=== PATIENT | female | born 1990 | race Caucasian/White ===

== ENCOUNTER 2016-10-21 11:21 | Emergency (ER) ==
[2016-10-21 11:25] VITALS: BP 127/79; TEMP 98.8; BMI 26.6
[2016-10-21 11:48] LABS: BILIRUBIN,URINE Negative (NEGATIVE); KETONES,URINE Trace (NEGATIVE); LEUKOCYTE ESTERASE ,URINE 1+ (NEGATIVE); NITRITE,URINE Negative (NEGATIVE); PROTEIN,URINE Negative (NEGATIVE); URINE, BLOOD 2+ (NEGATIVE)
[2016-10-21 11:49] LABS: ADD URINE MICROSCOPIC YES
[2016-10-21 11:50] LABS: URINE PREGNANCY INTERNAL QC INTERNAL QC VALID
[2016-10-21 11:53] LABS: BACTERIA,URINE 1+ (NOT PRESENT)
--- NOTE | 2016-10-21 12:35 | DI ---
Exam: Lumbar spine complete with obliques. HISTORY: Pain. Findings: Anterior, lateral, coned-down and bilateral oblique images of the lumbar spine are submit ronaldo. These demonstrate five [id number], lumbarized vertebrae with no compression fracture or l isthesis. There is no osseous erosion or radiodense foreign body. The facet joints appear grossly aligned and intact. There is a updhotka-ed-wtaie amount of stool throughout the nondilated colon. Impressions: No compression fracture or listhesis in the lumbar spine.
--- NOTE | 2016-10-21 13:32 | ED.PDOC ---
General ED Provider: Dr. HUMBERTO PETERS Chief Complaint: Back Pain Stated Complaint: BACK PAIN Time Seen by Physician: 11:21 (SEEN WITH STAFF) Mode of Arrival: Walk-In Information Source: Patient Exam Limitations: No limitations Primary Care Provider: RANJIT ARSHAD Nursing and Triage Documentation Reviewed and Agree: Yes Musculoskeletal Complaint Exam - Back Pain Complaint/Exam Mechanism of Injury: Reports: No known trauma Onset/Duration: 3 DAY Symptoms Are: Still present Timing: Intermittent Episodes Lasting: Days Initial Severity: Mild Current Severity: Mild Location: Reports: Discrete Character: Reports: Aching Aggravating: Reports: None Alleviating: Reports: Rest Associated Signs and Symptoms: Denies: Swelling, Redness, Bruising, Fever, Weakness, Numbness, Tingling, Abdominal pain, Flank pain, Bladder incontinence, Bowel incontinence, Weight loss, Pain with weight bearing Related History: Reports: Similar episode TAD Risk Factors: Reports: None AAA Risk Factors: Reports: None Cauda Equina Risk Factors: Reports: None Epidural Abcess Risk Factors: Reports: None Related Surgical History: Reports: None Focal Tenderness: No Paraspinal Muscle Tenderness: No Paraspinal Muscle Spasm: No Scoliosis: No Lordosis: No Kyphosis: No SLR Test: Right Negative, Left Negative Hip Motion Testing Pain: Right Negative, Left Negative Focal Weakness: Present: None Focal Sensory Loss: Present: None Gait: Present: Normal Differential Diagnoses: Strain (NO UTI ISSUES ), Sprain Review of Systems - Review Of Systems Constitutional: Reports: No symptoms Eyes: Reports: No symptoms Ears, Nose, Mouth, Throat: Reports: No symptoms Respiratory: Reports: No symptoms Cardiac: Reports: No symptoms GI: Reports: No symptoms : Reports: Dysuria Musculoskeletal: Reports: No symptoms Skin: Reports: No symptoms Neurological: Reports: No symptoms Endocrine: Reports: No symptoms Hematologic/Lymphatic: Reports: No symptoms All Other Systems: Reviewed and Negative Past Medical History - Past Medical History Previously Healthy: Yes Endocrine: Reports: None Cardiovascular: Reports: None Respiratory: Reports: None Hematological: Reports: None Gastrointestinal: Reports: None Genitourinary: Reports: None Neuro/Psych: Reports: None Musculoskeletal: Reports: None Cancer: Reports: None Last Menstrual Period: not sure - Surgical History General Surgical History: Reports: None - Family History Family History: Reports: None - Social History Smoking Status: Never smoker Hx Substance Use: No Alcohol Screening: None Physical Exam - Physical Exam Appearance: Well-appearing, No pain distress, Well-nourished Eyes: JODI, EOMI, Conjunctiva clear ENT: Ears normal, Nose normal, Oropharynx normal Respiratory: Airway patent, Breath sounds clear, Breath sounds equal, Respirations nonlabored Cardiovascular: RRR, Pulses normal, No rub, No murmur GI/: Soft, Nontender, No masses, Bowel sounds normal, No Organomegaly Musculoskeletal: Normal strength, ROM intact, No edema, No calf tenderness Skin: Warm, Dry, Normal color Neurological: Sensation intact, Motor intact, Reflexes intact, Cranial nerves intact, Alert, Oriented Psychiatric: Affect appropriate, Mood appropriate Critical Care Note - Critical Care Note Total Time (mins): 0 Course - Course Orders, Labs, Meds: Lab Review 10/21/16 10/21/16 11:30 11:37 Urine Color Yellow Urine Clarity Slightly Urine pH 6.0 Ur Specific Marlow 1.025 Urine Protein Negative Urine Glucose (UA) Negative Urine Ketones Trace Urine Blood 2+ Urine Nitrite Negative Urine Bilirubin Negative Urine Urobilinogen 0.2 Ur Leukocyte Esterase 1+ Urine Microscopic RBC 5-10 Urine Microscopic WBC 2-5 Ur Squamous Epith Cells 20-30 Urine Bacteria 1+ Urine Test Negative Orders Category Date Time Status TEST URINE [URINE ] Stat LAB 10/21/16 11:37 Completed UA [URINALYSIS C & S IF INDICATED] Stat LAB 10/21/16 11:31 Uncollected URINE CULTURE Stat LAB 10/21/16 11:52 Received LUMBAR SPINE, MIN 4 VIEWS Stat RADS 10/21/16 11:31 Ordered Vital Signs: Temp Pulse Resp BP Pulse Ox 10/21/16 11:21 98.8 F 99 H 18 127/79 97 Departure - Departure Time of Disposition: 13:32 Disposition: HOME SELF-CARE Discharge Problem: Low back pain Qualifiers: Chronicity: unspecified Sciatica presence: without sciatica Instructions: Back Pain (ED) Condition: Good Pt referred to PMD for follow-up: Yes Additional Instructions: Please call your Family Physician as soon as possible to schedule a follow-up appointment. Allergies/Adverse Reactions: Allergies Sulfa (Sulfonamide Antibiotics) Adverse Reaction (Verified 10/21/16 11:25) Home Medications: Ambulatory Orders l-Norgest/E.estradion-E.estrad [Seasonique 0.15-0.03-0.01 Tab] 1 each PO DAILY 10/21/16
== END 2016-10-21 13:50 | disposition home or self-care (01) ==
LOC: ED 11:21
DX: M54.5 Low back pain (principal); R30.0 Dysuria
CPT/HCPCS: 81001; 81025; 87086; 99283